=== PATIENT | female | born 1970 | race Caucasian/White ===

== ENCOUNTER 2016-11-17 11:57 | Emergency (ER) | payer OTHER ==
--- NOTE | 2016-11-17 12:59 | US ---
VENOUS ULTRASOUND OF EXTREMITY Indications: Left popliteal pain. Hypertension. Comparison: None FINDINGS: Multiple grayscale, color-flow and duplex Doppler images during left lower extremity DVT ultrasound are obtained from the common femoral vein down through to the peroneal and posterior tibial veins. DEEP VENOUS THROMBOSIS: None. COMMON FEMORAL VEIN: Normal. PROXIMAL FEMORAL VEIN: Normal. MID TO DISTAL FEMORAL VEIN: Normal. POPLITEAL VEIN: Normal. PROXIMAL CALF VEINS: Normal. IMPRESSION: No deep venous thrombosis of the left leg. Findings were called to Dr. Smalls at approximately 1255 hours on 11/16/2016.
== END 2016-11-17 13:16 | disposition home or self-care (01) ==
LOC: ED 11:57
DX: M79.605 Pain in left leg (principal); Z79.1 Long term (current) use of non-steroidal anti-inflammatories (NSAID); Z79.899 Other long term (current) drug therapy